=== PATIENT | male | born 1970 | race Caucasian/White ===

== ENCOUNTER 2018-12-06 22:52 | Emergency (ER) | payer BC ==
[~2018-12-06] VITALS: Ht 182.9 cm; Wt 137.4 kg
[2018-12-06 23:46] VITALS: Ht 182.9 cm; Wt 137.4 kg
[2018-12-07 01:51] VITALS: BP 142/75
== END 2018-12-07 01:51 | disposition home or self-care (01) ==
LOC: ED 22:52
DX: S31.21XA Laceration without foreign body of penis, initial encounter (principal); X58.XXXA Exposure to other specified factors, initial encounter; Y93.89 Activity, other specified; Y92.89 Other specified places as the place of occurrence of the external cause; Y99.8 Other external cause status
CPT/HCPCS: J3010; Q0162